=== PATIENT | male | born 1975 | race Caucasian/White ===

== ENCOUNTER 2016-12-19 22:40 | Emergency (ER) | payer OTHER ==
[~2016-12-19 22:40] MED LIST: ACETAMINOPHEN325 M1 PO; ACETAMINOPHEN500 M1 PO; ALBUTEROL0.63 MG/1 IH; ALBUTEROL0.83 MG/ML INH; ALBUTEROL17 GM INH; ALDACTONE25 MG PO; ALLEGRA ALLERG180 M1 PO; ALLEGRA180 MG PO; ALLOPURINOL100 M1 PO; ALLOPURINOL100 MG PO; ANDROGEL TD; APRESOLINE10 MG/TA1 PO; B-12500 MC1 PO; BUPROPION HCL200 MG PO; CALCIUM 600+D1 EAC1 PO; CALCIUM 600+D1 EAC6 PO; COQ-10100 M1 PO; COQ-10100 MG PO; COREG25 M1 PO; COREG25 MG PO; COUMADIN10 M1 PO; COUMADIN10 MG PO; COUMADIN5 M2 PO; COUMADIN5 MG PO; COZAAR100 M1 PO; COZAAR100 MG PO; COZAAR25 MG PO; COZAAR50 MG PO; CPAP; CYMBALTA30 M1 PO; CYMBALTA30 MG PO; DIGITEK125 MCG PO; FLONASE16 G1; GLIPIZIDE ER10 M1 PO; GLIPIZIDE ER5 M1 PO; GLUCOPHAGE500 MG PO; HYDRALAZINE HCL25 M1 PO; IRON325 M1 PO; KLOR-CON M1010 MEQ PO; KLOR-CON M20 MEQ/TAB PO; KLOR-CON M2020 MEQ PO; LANTUS100 U/ML SC; LANTUS100 UNITS/ SC; LASIX40 M1 PO; LASIX40 MG PO; LASIX80 MG PO; LOSARTAN-HCTZ1 EACH PO; LOVAZA1 GM PO; LOVAZA1 GM/CAP PO; LOVENOX30 MG/0.1 SQ; MEN'S MULTI-VI1 EACH PO; NEXIUM40 MG PO; NORVASC5 M2 PO; NORVASC5 MG PO; NOVOLOG100 UNIT/1 SQ; NOVOLOG100 UNITS/ SC; Nexium PO; OMEGA 3-6-9 11200 MG PO; OMEGA-3 FISH1200 MG PO; OMEPRAZOLE; OXYGEN; PREDNISONE10 M1; PRILOSEC OTC20 M1 PO; PROAIR RESPICL90 MCG INH; PROCRIT10000 U/ML SC; PROCRIT10000 UNIT SC; RENA-VITE RX T1 EACH PO; RENAL-VITE TAB0.8 MG PO; SANDOSTATI50 MCG/1 M INJ; SANDOSTATIN IM; SINGULAIR10 M1 PO; SINGULAIR10 MG PO; SPIRONOLACTONE25 M1 PO; SPIRONOLACTONE25 M2 PO; TRILIPIX135 M1 PO; TRILIPIX135 MG PO; ULTRAM50 M1 PO; ULTRAM50 MG PO; VICKS VAPORUB O50 G1 TP; VICKS VAPORUB O50 GM TP; VITAMIN B-500 MCG/TA PO; VITAMIN B12-FO1 EAC1 PO; VITAMIN B12500 MCG PO; VITAMIN D250000 UNI1 PO; VITAMIN D50000 UNI1 PO; WARFARIN PO; WARFARIN SODIUM10 MG PO; Z PACK PO; ZOCOR20 MG PO; ZOCOR40 M1 PO; ZOCOR40 MG PO; ZOFRAN ODT4 MG PO; ZOFRAN4 M1 PO; ZOFRAN4 M2 PO; ZYLOPRIM300 MG PO; ZYRTEC10 M7 PO; [UNRECOGNIZED DRUG - CODE] PO; [UNRECOGNIZED DRUG - CODE] SC; [UNRECOGNIZED DRUG - OTHER] PO
[2016-12-19] MEDS ORDERED: PEPCID20 M1 PO (23:09)
[2016-12-19] MEDS ORDERED: NEURONTIN300 M1 PO (23:11)
[2016-12-19 23:36] LABS: URINE APPEARANCE CLEAR; URINE BILIRUBIN NEGATIVE (NEG); URINE BLOOD NEGATIVE (NEG); URINE COLOR PALE YELLOW; URINE GLUCOSE (UA) NEGATIVE (NEG); URINE KETONE NEGATIVE (NEG); URINE LEUKOCYTE ESTERASE NEGATIVE (NEG); URINE NITRITE NEGATIVE (NEG); URINE PROTEIN MODERATE (NEG)
[2016-12-19 23:43] LABS: URINE EPITHELIAL CELLS 0-2 /[HPF] (0-10); URINE RBC 0-1 /[HPF] (0-5); URINE WBC 0 /[HPF] (0-5)
[2016-12-20 00:02] LABS: INR 1.6 INR (0.9-1.1); PROTHROMBIN TIME 19.1 SECONDS (9.0-13.6)
[2016-12-20 00:05] LABS: BASO % 0.6 % (0-2); EOS % 2.1 % (0-7); EOSINOPHIL ABSOLUTE COUNT 0.2 tho/cmm (0.0-0.7); HGB-HEMOGLOBIN 10.8 gm/dl (13.5-17.0); IMMATURE GRANULOCYTES ABSOLUTE 0.03 tho/cmm (0-0.03); IMMATURE GRANULOCYTES PERCENT 0.4 % (0-0.3); LYMPH % 19.8 % (20-45); LYMPH ABSOLUTE COUNT 1.4 tho/cmm (0.8-4.5); MCH (MEAN CORPUSCULAR HGB) 29.7 pg (28.0-32.0); MCHC MEAN CORPUSCULAR HGB CONC 31.8 % (32.0-36.0); MCV (MEAN CELL VOLUME) 93.4 fl (82.0-96.0); MEAN PLATELET VOLUME 11.6 cmc (9.4-12.4); MONO % 9.4 % (0-12); MONOCYTE ABSOLUTE COUNT 0.7 tho/cmm (0.0-1.2); NEUTROPHIL ABSOLUTE COUNT 4.9 tho/cmm (1.6-8.0); NEUTROPHIL-AUTOMATED 4.9 tho/cmm (1.6-8.0); NEUTROPHILS % 67.7 % (40-80); PLATELET COUNT 196 tho/cmm (150-450); RED BLOOD COUNT 3.64 mil/cmm (4.40-5.70); RED CELL DISTRIBUTION WIDTH 16.3 % (12.4-16.4); WHITE BLOOD COUNT 7.2 tho/cmm (4.0-10.0)
[2016-12-20 00:09] LABS: ANION GAP 15 mmol/L (0-20); BLOOD UREA NITROGEN 75 mg/dl (6-24); CALCIUM 8.8 mg/dl (8.5-10.5); CARBON DIOXIDE-VENOUS 20 mmol/L (22-32); CHLORIDE 109 mmol/l (96-110); CREATININE 4.71 mg/dl (0.60-1.30); GLUCOSE 159 mg/dL (70-110); POTASSIUM 4.4 mmol/L (3.7-5.1); SODIUM 140 mmol/L (135-145); eGFR VALUE FOR BLACK 16 mL/Min
[2016-12-20] MEDS ORDERED: CYCLOBENZAPRINE10 M1 PO (00:31)
[2016-12-20] MEDS ORDERED: HYDROCODON-ACE1 EA16 PO (00:32)
[2016-12-20] MEDS ORDERED: LEVSIN-SL0.125 MG SL (00:33)
[2016-12-20] MEDS ORDERED: RENA-VITE RX T1 EACH PO (00:36)
[2016-12-20] MEDS ORDERED: ROCALTROL0.25 MC1 PO (00:39)
[2016-12-20] MEDS ORDERED: LASIX80 M1 PO (00:40)
[2016-12-20] MEDS ORDERED: LASIX40 M1 PO (00:40)
[2016-12-20] MEDS ORDERED: CARAFATE1 G2 PO (00:41)
[2016-12-20] MEDS ORDERED: TYLENOL EXTRA500 M1 PO (00:43)
[2016-12-20] MEDS ORDERED: NOVOLOG100 UNITS/ SC ×4 (00:46→00:48)
[2016-12-20] MEDS ORDERED: LEVEMIR FL100 UNIT/2 SC (00:46)
[2017-03-11] MEDS ORDERED: CLARITIN10 M6 PO (15:51)
[2017-03-11] MEDS ORDERED: LOVAZA1 GM/CAP PO (15:53)
[2017-03-11] MEDS ORDERED: NORVASC5 M2 PO (15:55)
[2017-03-11] MEDS ORDERED: LEVEMIR100 UNITS/ SC (16:03)
== END 2016-12-20 01:56 ==
LOC: EDMED 22:40
PROVIDERS: Emergency Medicine
DX: S32.018A Other fracture of first lumbar vertebra, initial encounter for closed fracture (principal); S22.32XA Fracture of one rib, left side, initial encounter for closed fracture; S30.1XXA Contusion of abdominal wall, initial encounter; I48.91 Unspecified atrial fibrillation; I11.0 Hypertensive heart disease with heart failure; E11.9 Type 2 diabetes mellitus without complications; K21.9 Gastro-esophageal reflux disease without esophagitis; Z95.0 Presence of cardiac pacemaker; Z87.891 Personal history of nicotine dependence; Z79.4 Long term (current) use of insulin; Z79.899 Other long term (current) drug therapy; W18.00XA Striking against unspecified object with subsequent fall, initial encounter; Y92.019 Unspecified place in single-family (private) house as the place of occurrence of the external cause
CPT/HCPCS: J1170